=== PATIENT | male | born 1970 | race Caucasian/White ===

== ENCOUNTER → 2023-06-29 15:37 | Outpatient (CLI) | payer OTHER, SELFPAY ==
[2023-06-29 13:22] LABS: Basophils % 0.9 % (0.1-2.0); Eosinophils # 0.2 K/mm3 (0.0-0.4); Eosinophils % 3.2 % (0.1-12.0); Hemoglobin 16.7 g/dL (14.1-18.0); Lymphocytes # 1.2 K/mm3 (0.7-4.5); Lymphocytes % 25.2 % (10-50); Mean Corpuscular HGB Conc 31.6 g/dL (31.8-35.4); Mean Corpuscular Hemoglobin 27.8 pg (27.0-31.2); Mean Corpuscular Volume 87.9 fl (80-94); Monocytes # 0.3 K/mm3 (0.1-1.0); Monocytes % 5.6 % (1.7-9.3); Neutrophils # 3.1 K/mm3 (1.8-7.8); Platelet Count 233 K/mm3 (142-424); Red Blood Count 6.03 M/mm3 (4.60-6.20); Red Cell Distribution Width 13.5 % (11.5-17.5); White Blood Count 4.8 K/mm3 (4.8-10.8)
[2023-06-29 13:39] LABS: Alanine Aminotransferase 41 U/L (12-78); Albumin/Globulin Ratio 1.8 (1.1-1.8); Alkaline Phosphatase 77 U/L (38-126); Anion Gap 17.6 mEq/L (5-15); Aspartate Amino Transferase 37 U/L (17-59); Bilirubin,Total 1.1 mg/dl (0.2-1.3); Blood Urea Nitrogen 13 mg/dl (9-20); Calcium 9.7 mg/dl (8.4-10.2); Carbon Dioxide 28 mmol/L (22.0-30.0); Chloride 102 mmol/L (98-107); Chol/HDL Ratio 3.7 (1-3.5); Cholesterol 263 mg/dl (140-200); Estimated Glomerular Filt Rate 78 ml/min (>60); GFR (African American) 95 ML/MIN (>60); Globulin 2.8 g/dL (1.3-3.2); Glucose 98 mg/dl (74-100); HDL Cholesterol 72 mg/dl (40-60); Potassium 4.6 mmoL/L (3.5-5.1); Sodium 143 mmol/L (136-145); Total Protein,Serum 7.8 g/dl (6.3-8.2); Triglycerides 99 mg/dl (30-150); VLDL Cholesterol 20 mg/dL (0-40)
[2023-06-29 13:51] LABS: Direct LDL Cholesterol 144.55 mg/dL (100-129)
[2023-06-29 13:56] LABS: 25-OH Vitamin D, Total 45.9 ng/mL (30-100)
[2023-06-29 13:57] LABS: Free T4 (Free Thyroxine) 0.73 ng/dl (0.78-2.19)
[2023-06-29 14:10] LABS: Thyroid Stimulating Hormone 1.42 uIU/mL (0.465-4.68)
[2023-06-29 15:44] LABS: Hemoglobin A1C 5.6 % (4.0-6.0)
== END ==
PROVIDERS: PCP Internal Medicine; Visit Provider Internal Medicine
DX: Z00.00 Encounter for general adult medical examination without abnormal findings (principal); Z13.1 Encounter for screening for diabetes mellitus; Z13.29 Encounter for screening for other suspected endocrine disorder; Z13.6 Encounter for screening for cardiovascular disorders; Z13.220 Encounter for screening for lipoid disorders; Z12.5 Encounter for screening for malignant neoplasm of prostate
CPT/HCPCS: 80053; 80061; 82306; 83036; 84439; 84443; 85025; G0103

== ENCOUNTER → 2023-07-29 13:45 | Outpatient (CLI) | payer OTHER, SELFPAY | LOC: RT 13:46 | PROVIDERS: PCP Internal Medicine; Visit Provider Internal Medicine | DX: R29.818 Other symptoms and signs involving the nervous system (principal) | CPT/HCPCS: 95806 ==

== ENCOUNTER 2023-08-12 09:24 | Day surgery (SDC) | payer OTHER, SELFPAY ==
[2023-07-30 12:56] VITALS: BMI 29.7
[2023-08-12 09:40] VITALS: BP 148/97; PULSE 94; RESP 18; TEMP 37.5; O2SAT 97
--- NOTE | 2023-08-12 09:45 | SUR.PREOP ---
unableto scan IVF d/t mobile units not working this morning.
[2023-08-12 10:32] VITALS: O2SAT 97
--- NOTE | 2023-08-12 10:48 | HMH.SCOPE ---
Procedure: Date: 08/12/23 Patient Date of :: 1970 Procedure Performed:: Screening colonoscopy Indications:: At age for screening examination Performing Provider:: Pavithra Currie MD Referring Provider:: Nelson Bae DO Sedation:: Propofol Procedure:: After placing the patient in the left lateral decubitus position, the colonoscopy was gently inserted into the rectum and under direct visualization advanced to the cecum which was identified by transillumination in the right lower quadrant, identification of the ileocecal valve, appendiceal orifice, and cecal strap. Color, texture, mucosa, and anatomy of the colon were carefully examined with the scope. Findings:: Anal canal: normal Rectum: normal Sigmoid colon: normal without polyps or inflammatory changes Descending colon: normal without polyps or inflammatory changes Splenic flexure: normal Transverse colon: normal without polyps or inflammatory changes Hepatic flexure: normal Ascending colon: normal without polyps or inflammatory changes Cecum: normal Terminal ileum: not visualized Impression: Normal colonoscopy Recommendations:: Follow up examination in about TEN years or so, sooner if clinically indicated. Complications:: None Estimated blood obtained (mL): 0 Colonoscopy Component Colonoscopy Component Was a colonoscopy performed during today's procedure?: Yes Recommended follow up colonoscopy of at least 10 years?: Yes
[2023-08-12 10:52] VITALS: BP 108/71; PULSE 84; RESP 16; TEMP 36.2; O2SAT 97
--- NOTE | 2023-08-12 11:00 | EXP.ANES.CKL ---
[facility] Disclaimer: The information contained in this section may have been updated after the patient was seen, as this information can be updated by other users. Medical History Pneumonia Right clavicle fracture Surgical History (Reviewed 08/12/23 @ 11: by Soheila Mendes CRNA) No significant past surgical history Family History (Reviewed 08/12/23 @ 11: by Soheila Mendes CRNA) Father Cancer Mother Seizure Thyroid disorder Brother Diabetes Brother Primary lateral sclerosis Social History Smoking Status: Never smoker alcohol intake: current substance use type: denies use current occupational status: employed Travel in the last 8 weeks: None [facility] Anesthesia Checklist Patient Identification Patient Identification: Arm Band and Verbal (Name & ) Structural Data Admitted From: Home Planned Operative Procedure/s: Colonoscopy Consent for Planned Operative Procedure(s) Verified: Yes NPO Status Verified Time NPO: 00:00 Airway Assessment Mallampati Score:: Class II C-Spine Mobility Assessed: Yes TMJ Mobility Assessed: Yes Dentition: Good Dentition Neurological Assessment Level of Consciousness: Awake Hx Seizures: No Numbness or tingling in extremities: No Anesthesia Plan Anesthesia Risk discussed: Yes Anesthesia Plan: Verified ASA Class: I Anesthesia Type: MAC
[2023-08-12 11:02] VITALS: BP 109/70; PULSE 82; RESP 18; O2SAT 97
[2023-08-12 11:12] VITALS: BP 120/78; PULSE 74; RESP 16; O2SAT 99
[2023-08-12 11:22] VITALS: BP 127/77; PULSE 75; RESP 16; O2SAT 100
== END 2023-08-12 11:45 | disposition home or self-care (01) ==
PROVIDERS: PCP Internal Medicine; Visit Provider Internal Medicine Gastroenterology
PROC: 0DJD8ZZ Inspection of Lower Intestinal Tract, Via Natural or Artificial Opening Endoscopic (ICD-10-PCS; CPT 45378; principal; 2023-08-12 10:30)
DX: Z12.11 Encounter for screening for malignant neoplasm of colon (principal)
CPT/HCPCS: 45378

== ENCOUNTER → 2023-09-21 14:15 | Outpatient (POV) | payer OTHER, SELFPAY | PROVIDERS: PCP Internal Medicine; Visit Provider Dermatology | DX: Z00.00 Encounter for general adult medical examination without abnormal findings (principal) ==